=== PATIENT | male | born 1990 | race Caucasian/White ===

== ENCOUNTER 2017-09-16 03:51 | Emergency (ER) | payer SELFPAY ==
[2017-09-16] MEDS ORDERED: MAGNE/ALUM HYDROXD 30 ML UCUP ONE (04:37)
[2017-09-16 04:51] LABS: Absolute Lymphocytes (CBC) 3.2 K/uL (0.7-4.9); Absolute Monocytes 0.7 K/uL (0.1-1.3); Absolute Neutrophil 6.4 K/uL (1.8-8.0); Basophils % 1.2 % (0-1.3); Eosinophils % 1.9 % (0-4.4); Hematocrit 47.4 % (39.6-49.0); Lymphocytes % 29.9 % (15.3-44.8); MCH 29.2 pg (27.0-35.0); MCV 85.8 fL (80-100); MPV 8.2 fL (7.6-11.3); Monocytes % 6.4 % (3.3-12.3); RBC Red Blood Cell Count 5.53 M/uL (4.33-5.43)
[2017-09-16 05:07] LABS: Potassium 3.7 mEq/L (3.6-5.0)
[2017-09-16 05:14] LABS: Albumin 4.4 g/dL (3.2-5.5); Bilirubin Direct 0.1 mg/dL (0-0.2); Bilirubin Total 0.7 mg/dL (0.3-1.2); Protein, Total 7.9 g/dL (6.0-8.3)
--- NOTE | 2017-09-16 05:51 | EDPHYS ---
Physician Documentation [facility] Name: Van Jay Age: 27 yrs Sex: Male : 1990 Arrival Date: 09/16/2017 Time: 03:53 Bed 19 Private MD: ED Physician Maximino Walker HPI: 09/16 05:45 This 27 yrs old Male presents to ER via Ambulatory with complaints of Chest gs Pain. 05:45 The patient or guardian reports chest pain that is located primarily in the epigastric gs area. The pain radiates to Associated signs and symptoms: Pertinent negatives: diaphoresis, shortness of breath, syncope, vomiting. The chest pain is described as burning, sharp. Duration: The patient or guardian reports a single episode, that is still ongoing. Modifying factors: The symptoms are alleviated by nothing. the symptoms are aggravated by nothing. Severity of pain: At its worst the pain was moderate in the emergency department the pain is unchanged. The patient has not experienced similar symptoms in the past. Historical: - Allergies: 04:09 No Known Allergies; jd3 - Home Meds: 04:09 Chantix oral oral [Active]; jd3 - PMHx: 04:09 None; jd3 - PSHx: 04:09 Appendectomy; Vasectomy; jd3 - Immunization history:: Adult Immunizations up to date. - Social history:: Smoking status: Patient uses tobacco products, stopped 2 weeks ago. - Ebola Screening: : No symptoms or risks identified at this time. ROS: 05:45 All other systems are negative. gs Exam: 05:45 Head/Face: Normocephalic, atraumatic. Eyes: Pupils equal round and reactive to light, gs extra-ocular motions intact. Lids and lashes normal. Conjunctiva and sclera are non-icteric and not injected. Cornea within normal limits. Periorbital areas with no swelling, redness, or edema. ENT: Nares patent. No nasal discharge, no septal abnormalities noted. Tympanic membranes are normal and external auditory canals are clear. Oropharynx with no redness, swelling, or masses, exudates, or evidence of obstruction, uvula midline. Mucous membranes moist. Neck: Trachea midline, no thyromegaly or masses palpated, and no cervical lymphadenopathy. Supple, full range of motion without nuchal rigidity, or vertebral point tenderness. No Meningismus. Chest/axilla: Normal chest wall appearance and motion. Nontender with no deformity. No lesions are appreciated. Cardiovascular: Regular rate and rhythm with a normal S1 and S2. No gallops, murmurs, or rubs. Normal PMI, no JVD. No pulse deficits. Respiratory: Lungs have equal breath sounds bilaterally, clear to auscultation and percussion. No rales, rhonchi or wheezes noted. No increased work of breathing, no retractions or nasal flaring. Abdomen/GI: Soft, non-tender, with normal bowel sounds. No distension or tympany. No guarding or rebound. No evidence of tenderness throughout. Back: No spinal tenderness. No costovertebral tenderness. Full range of motion. Skin: Warm, dry with normal turgor. Normal color with no rashes, no lesions, and no evidence of cellulitis. MS/ Extremity: Pulses equal, no cyanosis. Neurovascular intact. Full, normal range of motion. Neuro: Awake and alert, GCS 15, oriented to person, place, time, and situation. Cranial nerves II-XII grossly intact. Motor strength 5/5 in all extremities. Sensory grossly intact. Cerebellar exam normal. Normal gait. 05:45 Constitutional: The patient appears alert, awake, uncomfortable. 05:45 ECG was reviewed by the Attending Physician. Vital Signs: 04:09 BP 136 / 87; Pulse 66; Resp 20 S; Temp 97.8(O); Pulse Ox 100% on R/A; Weight 99.79 kg jd3 (R); Height 5 ft. 11 in. (180.34 cm) (R); Pain 7/10; 04:58 BP 133 / 79; Pulse 62; Resp 17 S; Pulse Ox 98% on R/A; Pain 0/10; jd3 05:42 BP 107 / 86; Pulse 67; Resp 14 S; Pulse Ox 99% on R/A; Pain 0/10; jd3 04:09 Body Mass Index 30.68 (99.79 kg, 180.34 cm) jd3 MDM: 04:06 Patient medically screened. 05:45 Differential diagnosis: coronary artery disease chest wall pain, gastroesophageal gs reflux disease (GERD), thoracic aortic disection. Data reviewed: vital signs, nurses notes. 05:45 Counseling: I had a detailed discussion with the patient and/or guardian regarding: the gs presence of at least one elevated blood pressure reading (>120/80) during this emergency department visit. Response to treatment: the patient's symptoms have resolved after treatment, the patient's pain is gone. Special discussion: I have referred the patient to see his PCP for further evaluation of high blood pressure. 09/16 04:17 Order name: Basic Metabolic Panel; Complete Time: : 09/16 04:17 Order name: CBC with Diff; Complete Time: 09/16 04:17 Order name: CPK; Complete Time: 09/16 04:17 Order name: LFT's; Complete Time: : 09/16 04:17 Order name: Troponin (emerg Dept Use Only); Complete Time: 09/16 04:17 Order name: Lipase; Complete Time: 09/16 04:17 Order name: XRAY Chest (1 view) 09/16 04:17 Order name: EKG; Complete Time: 04: 09/16 04:17 Order name: Cardiac monitoring; Complete Time: 04: 09/16 04:17 Order name: EKG - Nurse/Tech; Complete Time: 04: 09/16 04:17 Order name: IV Saline Lock; Complete Time: 04: 09/16 04:17 Order name: D-Dimer; Complete Time: 09/16 04:52 Order name: Urine Dipstick--Ancillary (enter results) [facility] 09/16 04:17 Order name: Labs collected and sent; Complete Time: 04:32 09/16 04:17 Order name: O2 Per Protocol; Complete Time: 04: 09/16 04:17 Order name: O2 Sat Monitoring; Complete Time: 04: 09/16 04:17 Order name: Urine Dipstick-Ancillary (obtain specimen); Complete Time: 04:50 gs EC:45 Rate is 74 beats/min. Rhythm is regular. [place] interval is normal. QRS interval is gs prolonged. No Q waves. T waves are Normal. No ST changes noted. Clinical impression: Abnormal EKG without significant change. Interpreted by me. Administered Medications: 04:40 Drug: Maalox Suspension (200 mg-200 mg-20 mg/5 mL) 30 ml Route: PO; jd3 04:56 Follow up: Response: No adverse reaction; Pain is decreased jd3 Disposition: 09/16/17 05:50 Discharged to Home. Impression: Epigastric pain. - Condition is Stable. - Discharge Instructions: Abdominal Pain, Adult, Managing Your High Blood Pressure. - Prescriptions for Pepcid 20 mg Oral Tablet - take 1 tablet by ORAL route every 12 hours for 10 days; 20 tablet. - Medication Reconciliation Form, Thank You Letter, Antibiotic Education, Prescription Opioid Use, Work release form form. - Follow up: Private Physician; When: 2 - 3 days; Reason: Re-evaluation by your physician. Signatures: Dispatcher [employer] EDMS Maximino Walker MD MD gs Davies, Jonathon RN RN jd3 Corrections: (The following items were deleted from the chart) 06:00 05:50 09/16/2017 05:50 Discharged to Home. Impression: Epigastric pain. Condition is jd3 Stable. Forms are Medication Reconciliation Form, Thank You Letter, Antibiotic Education, Prescription Opioid Use. Follow up: Private Physician; When: 2 - 3 days; Reason: Re-evaluation by your physician. gs
--- NOTE | 2017-09-16 05:51 | ER ---
Nurse's Notes [facility] Name: Van Jay Age: 27 yrs Sex: Male : 1990 Arrival Date: 09/16/2017 Time: 03:53 Bed 19 Private MD: Diagnosis: Epigastric pain Presentation: 09/16 04:07 Presenting complaint: Patient states: "My chest is hurting that radiates to my back, as jd3 well as it hurts to breath.". Transition of care: patient was not received from another setting of care. Onset of symptoms was September 16, 2017. Risk Assessment: Do you want to hurt yourself or someone else? Patient reports no desire to harm self or others. Initial Sepsis Screen: Does the patient meet any 2 criteria? No. Patient's initial sepsis screen is negative. Does the patient have a suspected source of infection? No. Patient's initial sepsis screen is negative. Care prior to arrival: None. 04:07 Method Of Arrival: Ambulatory j 04:07 Acuity: CYNTHIA 3 jd3 Historical: - Allergies: 04:09 No Known Allergies; jd3 - Home Meds: 04:09 Chantix oral oral [Active]; jd3 - PMHx: 04:09 None; jd3 - PSHx: 04:09 Appendectomy; Vasectomy; jd3 - Immunization history:: Adult Immunizations up to date. - Social history:: Smoking status: Patient uses tobacco products, stopped 2 weeks ago. - Ebola Screening: : No symptoms or risks identified at this time. Screenin:12 Abuse screen: Denies threats or abuse. Nutritional screening: No deficits noted. jd3 Tuberculosis screening: No symptoms or risk factors identified. Fall Risk Gait- Normal/Bed Rest/Wheelchair (0 pts) Mental Status- Oriented to own ability (0 pts). Total Bowles Fall Scale indicates No Risk (0-24 pts). Assessment: 04:10 General: Appears uncomfortable, Behavior is cooperative, appropriate for age. Pain: jd3 Complains of pain in chest Pain radiates to back Pain currently is 7 out of 10 on a pain scale. Quality of pain is described as sharp, shooting, Pain began Also complains of shortness of breath. Neuro: Level of Consciousness is awake, alert, obeys commands, Oriented to person, place, time, situation. Cardiovascular: Heart tones S1 S2 present Capillary refill < 3 seconds Patient's skin is warm and dry. Respiratory: Airway is patent Respiratory effort is even, unlabored, Respiratory pattern is regular, symmetrical, Breath sounds are clear bilaterally. GI: Abdomen is round Bowel sounds present X 4 quads. Abd is soft and non tender X 4 quads. Reports nausea. : No signs and/or symptoms were reported regarding the genitourinary system. EENT: No signs and/or symptoms were reported regarding the EENT system. Derm: Skin is intact, Skin is dry, Skin is normal, Skin temperature is warm. Musculoskeletal: Circulation, motion, and sensation intact. Range of motion: intact in all extremities. 04:59 Reassessment: Patient appears in no apparent distress at this time. Patient and/or jd3 family updated on plan of care and expected duration. Pain level reassessed. Patient is alert, oriented x 3, equal unlabored respirations, skin warm/dry/pink. Patient states feeling better. 05:43 Reassessment: Patient appears in no apparent distress at this time. Patient and/or jd3 family updated on plan of care and expected duration. Pain level reassessed. Patient is alert, oriented x 3, equal unlabored respirations, skin warm/dry/pink. Patient states feeling better. 05:59 Reassessment: Patient appears in no apparent distress at this time. Patient and/or jd3 family updated on plan of care and expected duration. Pain level reassessed. Patient is alert, oriented x 3, equal unlabored respirations, skin warm/dry/pink. pt reported understanding of discharge instructions, even and steady gait upon discharge. Patient states feeling better. Vital Signs: 04:09 BP 136 / 87; Pulse 66; Resp 20 S; Temp 97.8(O); Pulse Ox 100% on R/A; Weight 99.79 kg jd3 (R); Height 5 ft. 11 in. (180.34 cm) (R); Pain 7/10; 04:58 BP 133 / 79; Pulse 62; Resp 17 S; Pulse Ox 98% on R/A; Pain 0/10; jd3 05:42 BP 107 / 86; Pulse 67; Resp 14 S; Pulse Ox 99% on R/A; Pain 0/10; jd3 04:09 Body Mass Index 30.68 (99.79 kg, 180.34 cm) jd3 ED Course: 03:53 Patient arrived in ED. al2 04:06 Maximino Walker MD is Attending Physician. 04:06 Arjun Narayanan, RN is Primary Nurse. jd3 04:08 Triage completed. jd3 04:10 Arm band placed on. EKG completed in triage. Results shown to MD. EKG completed in jd3 triage. Results shown to MD. 04:12 Patient has correct armband on for positive identification. Bed in low position. Call j light in reach. Side rails up X2. classroom monitor on. Pulse ox on. NIBP on. 04:12 Patient maintains SpO2 saturation greater than 95% on room air. jd3 04:30 Inserted saline lock: 20 gauge in right antecubital area, using aseptic technique. jd3 Blood collected. 04:45 X-ray completed. Portable x-ray completed in exam room. Patient tolerated procedure kw well. 04:46 XRAY Chest (1 view) In Process Unspecified. EDMS 05:58 No provider procedures requiring assistance completed. IV discontinued, intact, jd3 bleeding controlled, No redness/swelling at site. Pressure dressing applied. Administered Medications: 04:40 Drug: Maalox Suspension (200 mg-200 mg-20 mg/5 mL) 30 ml Route: PO; jd3 04:56 Follow up: Response: No adverse reaction; Pain is decreased jd3 Outcome: 05:50 Discharge ordered by . 05:59 Discharged to home ambulatory. jd3 05:59 Condition: stable 05:59 Discharge instructions given to patient, Instructed on discharge instructions, follow up and referral plans. medication usage, Demonstrated understanding of instructions, follow-up care, medications, Prescriptions given X 1. 06:00 Patient left the ED. jd3 Signatures: Dispatcher [employer] EDMS Meme Gonzales Maximino Walker MD MD Arjun Narayanan, RN RN jd3 Emilia Rosenthal
[2017-09-16 06:06] LABS: Urine Blood TRACE (NEG); Urine Glucose NEGATIVE (NEG); Urine Protein NEGATIVE (NEG); Urine Specific Gravity 1.015 (1.005-1.030); Urine pH 7.5 (5.0-7.0)
--- NOTE | 2017-09-16 06:55 | EKG ---
Test Date: 2017-09-16 Test Time: 03:59:47 Eligibility Examiner: AUREA MEASUREMENT RESULTS: Intervals: Rate: 74 MO: 154 QRSD: 102 QT: 372 QTc: 412 [place]: P: 47 MO: 154 QRS: 78 T: 63 INTERPRETIVE STATEMENTS: Normal sinus rhythm with sinus arrhythmia Normal ECG No previous ECG available for comparison Electronically Signed On 09-16-17 06:54:57 CDT by Kyle Man
--- NOTE | 2017-09-16 10:12 | RAD REPORT ---
EXAM DESCRIPTION: RAD - Chest Single View - 09/16/2017 4:46 am CLINICAL HISTORY: Chest pain COMPARISON: None. TECHNIQUE: AP portable chest image was obtained 0433 hours . FINDINGS: Lungs are clear. Heart and vasculature are normal. No measurable pleural effusion and no p neumothorax. No gross bony abnormality seen. No acute aortic findings suspected. IMPRESSION: No acute cardiopulmonary process.
== END 2017-09-16 06:00 | disposition home or self-care (01) ==
LOC: EDSEX 03:51 → ER 03:51
DX: R10.13 Epigastric pain (principal)
CPT/HCPCS: 36415; 71045; 80048; 80076; 81003; 82550; 83690; 84484; 85025; 85379; 93005; 99285